=== PATIENT | female | born 1985 | race Two or more races ===

== ENCOUNTER 2025-06-11 16:24 | Emergency (ER) | payer MEDICAID, SELFPAY ==
[2025-06-11 16:34] VITALS: BP 128/83; PULSE 74; RESP 18; TEMP 36.8; O2SAT 98; BMI 22.6
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
== END 2025-06-11 20:07 | disposition home or self-care (01) ==
PROVIDERS: Emergency Provider Emergency Medicine; PCP Family Medicine
DX: S92.332A Displaced fracture of third metatarsal bone, left foot, initial encounter for closed fracture (principal); S92.342A Displaced fracture of fourth metatarsal bone, left foot, initial encounter for closed fracture; S99.912A Unspecified injury of left ankle, initial encounter; R07.9 Chest pain, unspecified; V89.2XXA Person injured in unspecified motor-vehicle accident, traffic, initial encounter
CPT/HCPCS: 71046; 73610; 73630; 99284